=== PATIENT | female | born 1955 | race Caucasian/White ===

== ENCOUNTER 2017-04-21 19:43 | Inpatient (IN) | payer OTHER ==
[~2017-04-21] VITALS: Ht 165.1 cm; Wt 120.0 kg
[2017-04-21 23:09] LABS: BASOPHILS 0.1 % (0-2); EOSINOPHILS 0.4 % (0-7); HEMATOCRIT 45.5 % (36.0-48.0); HEMOGLOBIN 15.4 g/dL (12-16); IMMATURE GRANULOCYTES 0.3 % (0-5); MCH 32.2 pg (26.0-34.0); MCHC 33.8 g/dL (31.0-37.0); MCV 95.2 fL (80.0-100.0); MEAN PLATELET VOLUME 9.1 fL (7.4-10.4); NEUTROPHILS 88.2 % (40-80); PLATELET COUNT 276 10x3/uL (130-400); RBC 4.78 10x6/uL (4.00-5.40); RDW 14.6 % (11.5-14.5); WBC 10.1 10x3/uL (4.8-10.8)
[2017-04-21 23:13] LABS: APTT 23.6 SECONDS (22.8-39.4); INR 1.11 (0.85-1.17); PROTIME 13.9 SECONDS (11.6-15.0)
[2017-04-21 23:18] LABS: ALBUMIN 3.6 g/dL (3.4-5.0); ALKALINE PHOSPHATASE 52 U/L (46-116); ALT (SGPT) 44 U/L (10-68); CALC OSMOLALITY 283 mosm/kg (275-300); CALCIUM 8.8 mg/dL (8.5-10.1); CARBON DIOXIDE 26.7 mmol/L (21.0-32.0); CHLORIDE - SERUM 101 mmol/L (98-107); CREATININE - SERUM 0.8 mg/dL (0.6-1.3); GLUCOSE 152 mg/dL (74-106); POTASSIUM - SERUM 3.5 mmol/L (3.5-5.1); PROTEIN - SERUM 7.2 g/dL (6.4-8.2); SODIUM 140 mmol/L (136-145); UREA NITROGEN 18 mg/dL (7-18); eGFR NON AFRICAN AMERICAN 77 mL/min (90-120)
[2017-04-22 01:57] VITALS: BP 146/73; BMI 44.0
[2017-04-22 05:00] VITALS: BP 123/61
--- NOTE | 2017-04-22 07:30 | NUR ---
RESTING ,WITHOUT NEEDS.CALL LIGHT IN REACH
--- NOTE | 2017-04-22 08:30 | NUR ---
PT STATED IN A LOT OF PAIN, INQUIRED ON PAIN MEDS AND SURGERY, PT HAS MORPHINE PRN, ADVISED UNSURE OF SURGERY TIME DUE TO WORK IN, WILL CONTINUE WITH PLAN OF CARE AND CONTROL PAIN. BED IN LOW POSITION, CL IN REACH, SPOUSE AT BEDSIDE
[2017-04-22 08:33] VITALS: BP 149/60
[2017-04-22 12:21] VITALS: BP 130/66
[2017-04-22 13:47] VITALS: Ht 165.1 cm; Wt 120.0 kg
[2017-04-22 20:00] VITALS: BP 108/64
[2017-04-23 04:00] VITALS: BP 146/68
[2017-04-23] MEDS ORDERED: ACIPHEX20 MG PO (05:36)
[2017-04-23] MEDS ORDERED: HCTZ25 MG PO (05:37)
[2017-04-23] MEDS ORDERED: NIFEDIPINE ER30 MG PO (05:37)
[2017-04-23] MEDS ORDERED: IMURAN50 MG PO (05:38)
[2017-04-23] MEDS ORDERED: DIOVAN160 MG PO (05:38)
--- NOTE | 2017-04-23 07:00 | NUR ---
REPORT RECIEVED ASSUMED CARE. PATIENT IN BED WITH IV INTACT. NO COMPLAINTS AT THIS TIME. EYES CLOSED RESTING QUIETLY.
[2017-04-23 07:11] VITALS: BP 140/75
[2017-04-23 08:27] LABS: APPEARANCE HAZY (CLEAR); BACTERIA MODERATE /hpf (NONE SEEN); BILIRUBIN NEGATIVE (NEGATIVE); COLOR YELLOW (YELLOW); EPITHELIAL CELLS 0-5 /hpf (0-5); GLUCOSE NEGATIVE (NEGATIVE); KETONE NEGATIVE (NEGATIVE); MUCUS >1+ /lpf (NONE SEEN); NITRITE NEGATIVE (NEGATIVE); PROTEIN NEGATIVE (NEGATIVE); RED CELLS - URINE RARE /hpf (0-5); SPECIFIC GRAVITY 1.025 (1.005-1.020); WHITE CELLS - URINE 0-5 /hpf (0-5)
[2017-04-23 12:24] VITALS: BP 148/66
--- NOTE | 2017-04-23 13:12 | NUR ---
PATIENT PREOPED AT THIS TIME. MEDS GIVEN. IV INTACT. TO OR AT THIS TIME.
--- NOTE | 2017-04-23 13:12 | NUR ---
Patient Name: MIGNON SIMEON Admission Status: ER Accout number: [id number] Admission Date: 04-21-2017 : 1955 Admission Diagnosis: Attending: ZULEMA COLE Current LOS: 2 Anticipated DC Date: Planned Disposition: Home Primary Insurance: [employer] Discharge Planning Comments: CM met with patient to assess discharge planning needs. Patient was visiting family and fell at airport. She is independent with her care. She does not use any DME or HH services her and her will be flying back to [place] on Wednesday. CM will continue to follow and assist with discharge planning needs as needed. PCP [place] [facility] () [phone] Rewards Consultant: Luda Almendarez * Is the patient Alert and Oriented? Yes 0 * How many steps to enter\exit or inside your home? 0 0 * PCP PCP IN [place] 0 * Pharmacy [facility] 0 * Preadmission Environment Home with Family 0 * ADLs Independent 0 * Equipment None 0 * List name and contact numbers for known caregivers / representatives who currently or will assist patient after discharge: NEDRA () [phone] 0 * Community resources currently utilized None 0 * Additional services required to return to the preadmission environment? No 0 * Can the patient safely return to the preadmission environment? Yes 0 * Has this patient been hospitalized within the prior 30 days at any hospital? No 0 Grand Total: 0
[2017-04-23] MEDS ORDERED: MEPERIDINE HCL50 MG PO (15:30)
--- NOTE | 2017-04-23 16:17 | NUR ---
DR SHELBY CONSULTED ABOUT THE PATIENTS O2 SAT. DR SHELBY ORDERED 02 VIA OXIMISER TO MAINTAIN O2 SAT GREATER THEN 90%.
[2017-04-23 16:54] VITALS: BP 136/66
--- NOTE | 2017-04-23 17:00 | NUR ---
PATIENT BACK FROM OR. VITAL SIGNS STABLE. IV INTACT. SITTING UP WITH EYES OPEN. NO COMPLAINTS AT THIS TIME. CALL LIGHT WITHIN REACH. OXIMIZER AT 6 LITERS.
--- NOTE | 2017-04-23 18:00 | NUR ---
PATIENT ATE ICE CREAM AND TOLERATED WITH NO PROBLEMS. ASSISTED TO BR X 1 ASSIT. PATIENT VOIDED WITH NO PROBLEMS. TURNED O2 DOWN TO 3L NC AT THIS TIME. PATIENT SATS 93% PATIENT WANTS TO BE DC'D. EXPLAINED CAN NOT BE DISCHARGED UNTIL OFF OF O2. VERBALIZED UNDERSTANDING. AT BEDSIDE. CALL LIGHT WITHIN REACH.
[2017-04-23 19:30] VITALS: BP 122/76
--- NOTE | 2017-04-23 20:54 | NUR ---
WEANED OXYGEN DOWN TO ROOM AIR. PT SAT 93%. REMOVED IV'S X2 FROM LEFT HAND CATHETERS INTACT. REVIEWED DISCHARGE INSTRUCTIONS WITH PT AND SPOUSE. PT TRANSPORTED DOWN TO FRONT DOOR IN WHEELCHAIR BY WINDER HELPER.
--- NOTE | 2017-04-26 14:52 | OP ---
PATIENT NAME: MIGNON SIMEON MEDICAL RECORD: [id number] :57 LOCATION:[id number] ADMISSION DATE:04/21/17 SURGEON: ZULEMA COLE MD DATE OF OPERATION: 04/23/2017 PREOPERATIVE DIAGNOSIS: Comminuted proximal humerus fracture with a portion intra-articular. POSTOPERATIVE DIAGNOSIS: Comminuted proximal humerus fracture with a portion intra-articular. PROCEDURE: Open reduction internal fixation of the above. SURGEON: Zulema Cole MD ANESTHESIA: General. INTRAOPERATIVE COMPLICATIONS: None. SUMMARY OF PATHOLOGIC FINDINGS: Unfortunately, it was very comminuted. I do think that the posterior portion of the greater tuberosity did go back into its appropriate position. IMPLANTS USED: AxSOS humeral plate, 3-hole. OPERATIVE SUMMARY IN DETAIL: After obtaining the appropriate preoperative orthopedic surgery consent as well as anesthetic consultation, evaluation and clearance, the patient was brought to the operating room and placed on the operating table in supine position. After general laryngeal mask airway was administered, the patient was placed in the beach chair position. All pressure points were well padded. She was held firmly to the operating table using the vacuum pack suction system. The patient's right upper extremity and shoulder were then prepped and draped in routine sterile fashion. The arm was held in the Trimano arm holding device. Deltopectoral incision was taken down to the level of clavipectoral fascia. The cephalic vein was retracted and protected. Conjoined tendon was gently retracted medially to protect the musculocutaneous nerve. Brown retractor was utilized to retract the deltoid laterally. The fracture fragments were identified and under direct fluoroscopic visualization, reduction maneuver was performed. The plate was held provisionally with K wires to be sure it was in the appropriate location. Following this, serial and sequential drill and fill of all screws using combination of both compression and locking screws were utilized. Having completed this, AP and lateral radiographs were taken and sent to radiology for final review. Furthermore fluoroscopic real-time evaluation showed no perforation of the screws into the articular surface. Wound was then copiously irrigated and closed with #1 Vicryl followed by skin france. Sterile dressings were applied. The patient was awakened, taken to the recovery room in stable condition. All final needle and sponge counts were correct. TRANSINT:[id number] Voice Confirmation ID: [id number] DOCUMENT ID: [id number] OPERATIVE REPORT [id number] MIGNON SIMEON MD, ZULEMA DICK at 1452 CC: [id number] DICTATION DATE: 04/26/17933 TIMBER MANAGEMENT SPECIALIST: 04/26/17 1004 DIS IN 04/23/17 [facility] [address] [id number]
== END 2017-04-23 20:40 | disposition home or self-care (01) | DRG 493 ==
LOC: D.ER 19:43 → D.MS 22:01 → D.ER 04-22 00:12 → D.MS 04-22 00:12
PROVIDERS: Family Medicine; ADMIT Orthopaedic Surgery
PROC: 0PSC04Z Reposition Right Humeral Head with Internal Fixation Device, Open Approach (ICD-10-PCS; principal; 2017-04-23 12:00)
DX: S42.291A Other displaced fracture of upper end of right humerus, initial encounter for closed fracture (principal); Z68.41 Body mass index [BMI] 40.0-44.9, adult; W01.0XXA Fall on same level from slipping, tripping and stumbling without subsequent striking against object, initial encounter; I10 Essential (primary) hypertension; K21.9 Gastro-esophageal reflux disease without esophagitis; E66.9 Obesity, unspecified; F17.200 Nicotine dependence, unspecified, uncomplicated